=== PATIENT | female | born 2000 | race Caucasian/White ===

== ENCOUNTER 2024-09-27 12:18 | Oncology outpatient (recurring) (ONCR) | payer MEDICAID, SELFPAY ==
[2024-09-27] MEDS: rho(d) immune globulin 1,500 unit Syringe 1500 UNIT IM (13:44)
[2024-09-27 13:49] VITALS: BP 105/71; PULSE 97; RESP 16; TEMP 36.4; O2SAT 95
== END 2024-10-02 23:59 | disposition home or self-care (01) ==
PROVIDERS: PCP Nurse Practitioner; Visit Provider Family Medicine
DX: O26.899 Other specified pregnancy related conditions, unspecified trimester (principal)
CPT/HCPCS: 96372; J2790

== ENCOUNTER 2024-12-03 19:51 | Inpatient (IN) | payer MEDICAID, SELFPAY ==
[2024-12-03] VITALS (34 sets, daily range): BP systolic 90–133; BP diastolic 57–86; PULSE 79–119; RESP 16; O2SAT 96–99; BMI 31.8
[2024-12-03 18:45] LABS: Nitrazine Paper, PH Inconclusive
[2024-12-03 19:40] LABS: Hematocrit 31.7 % (36-47); Hemoglobin 10.70 g/dL (11.27-16.99); Mean Corpuscular HGB Conc 33.8 g/dL (30-55); Mean Corpuscular Hemoglobin 29.5 pg (27-33); Mean Corpuscular Volume 87.3 fl (85-98); Nucleated Red Blood Cells % 0 %; Platelet Count 265 10^3/cmm (157-399); Red Blood Count 3.63 10^6/uL (3.85-5.65); White Blood Count 12.52 10^3/uL (3.29-11.43)
[2024-12-03 19:50] LABS: PCP Screen Urine Negative (Negative)
[2024-12-03] MEDS: ROPivacaine syringe 100 MG/50 ML SYRINGE 10 MG EPIDURAL (23:11)
--- NOTE | 2024-12-03 23:12 | ANES.PREANE2 ---
Pre-Anesthetic Assessment Height/Weight: Height 1.6 m Weight 81.647 kg Pulse Resp BP Pulse Ox O2 Del Method 87 16 118/85 98 Room Air 12/03/24 23:07 12/03/24 19:09 12/03/24 23:07 12/03/24 23:07 12/03/24 19:51 Preop Diagnosis: intrauterine labor epidural Familial anesthetic complications: none Was Beta Yvrose taken within 24 hours: N/A Was Clonidine taken within 24 hours: N/A Last intake: currently eating ice chips and drinking water Social No alcohol and No tobacco Exam alert, oriented x 3 and clear to auscultation bilaterally Airway Mallampati: Class II Dentition: full History/ROS No significant history except as noted Pulmonary None reported CV/HEM None reported None reported Hepatic None reported GI None reported Metabolic None reported Musc/skel None reported Neuropsych None reported Anesthetic Plan ASA status: 2 Anesthesia: Anesthesia Evaluation and Regional (specify below) Risk of > 500 ml blood loss (7ml/kg in children): Yes, adequate IV access and fluids planned Medications/Allergies Home Medications ?Medication ?Instructions ?Recorded ?Confirmed ?Last Taken ?Type lamotrigine 100 mg tablet 100 mg PO 1XD 12/03/24 12/03/24 Unknown History ondansetron HCl 8 mg tablet 8 mg PO PRN 12/03/24 12/03/24 Unknown History [id number] 1 mg 1 tab PO 1XD 12/03/24 12/03/24 12/03/24 History tablet quetiapine 50 mg tablet 50 mg PO 1XD 12/03/24 12/03/24 Unknown History Allergies Allergy/AdvReac Type Severity Reaction Status Date / Time lavender (Lavandula Allergy ALGY-Hives Verified 12/03/24 20:16 angustifolia) sulfamethoxazole (From Allergy ALGY-Hives Verified 12/03/24 20:16 Bactrim) trimethoprim (From Bactrim) Allergy ALGY-Hives Verified 12/03/24 20:16 Current Medications Generic Name Dose Route Start Last Admin Trade Name Freq PRN Reason Stop Dose Admin Dextrose/Lactated Ringer's 1,000 mls @ 125 mls/hr 12/03/24 19:15 12/03/24 22:37 Dextrose 5%-Lactated Ringers IV 125 mls/hr .Q8H SAM Administration Ropivacaine 100 mg in 50 mls @ 10 mls/hr 12/03/24 21:00 12/03/24 23:11 Naropin Syringe EPIDURAL 10 mls/hr .Q5H SAM Administration Sodium Chloride 1,000 mls @ 999 mls/hr 12/03/24 20:54 12/03/24 22:38 Sodium Chloride 0.9% IV Infused .Q1H1M PRN Infusion See label comments PFSH Anesthesia Family History Denies family history of Colon cancer Ovarian cancer Diabetes Heart disease Breast cancer Hypertension Uterine cancer Thyroid disease Stroke Female Reproductive History : 2 Data Anesthesia 12/03/24 19:00 Short CBC 12/03/24 Range/Units 19:00 WBC 12.52 H (3.29-11.43) 10^3/uL Hgb 10.70 L (11.27-16.99) g/dL Hct 31.7 L (36-47) % MCV 87.3 (85-98) fl Plt Count 265 (157-399) 10^3/cmm Neut % (Auto) 61.8 % Neut # (Auto) 7.75 H (1.8-7.7) 10^3/uL Blood Bank 12/03/24 19:00 Blood Type O Negative Rho(D) Type Rh negative Antibody Screen Negative Anesthesia Procedures Epidural Time Out Performed: Yes Consents Signed: Procedure Consent Consent: requested by attending/covering physician, from patient, risks and benefits reviewed and patient agrees to proceed Lumbar Level: L4-L5 Epidural position: sitting Epidural procedure: sterile prep of area, 1% lidocaine to numb the area, 18 g needle, negative for paresthesia passed, neg for paresthesia, test dose given, 1.5% xylocaine 1:200k epi, 0.2% Ropivacaine bolus ml (5), placed PCEA, no systemic response, sterile dressing applied, L.U.D. no apparent complications and 0.2% Ropiavacaine @ mls/hr (10) Additional Comments: CATHERINE 6cm, catheter easily threaded to 5cm in the space. Vs monitored throughout and remained stable. Pt educated on [employer]
[2024-12-03] MEDS: ondansetron 2 mg/ML SDV 2 mL 4 MG IVP (23:38)
[2024-12-04] VITALS (29 sets, daily range): BP systolic 97–142; BP diastolic 52–79; PULSE 68–114; RESP 16; TEMP 36.5–36.7; O2SAT 97–99
[2024-12-04] MEDS: ROPivacaine syringe 100 MG/50 ML SYRINGE 10 MG EPIDURAL (02:31)
[2024-12-04] MEDS: oxytocin 30 UNIT/500 ML BAG 600 UNIT IV (03:09)
--- NOTE | 2024-12-04 03:17 | PM.OPHPUD ---
Labor & Delivery H&P Update Date of Procedure: December 04, 2024 Date H&P Performed: 11/30/24 Changes to previous documentation: The patient is a 24 year old at 40 weeks ega presenting with cervical change and consistent contractions. Admission Diagnosis: 24 year old in active labor Preop diagnosis: intrauterine Planned procedure: Spontaneous Vaginal Delivery Other information: The patient has had an unremarkable . She has had consistent care. There have been no concerns. Her blood type is O-, antibody screen neg. She passed glucose screen. Her drug screen was pos for marijuana. She was gbs neg. The remainder of her infectious disease profile was wnl. She has been on lamictal and seroquel during her due to Bipolar 2 disorder. Related Problem List Diagnoses 1. 40 weeks gestation of : 2. Bipolar 2 disorder: 3. Active labor at term: A&P Assessment and plan 1. 40 weeks gestation of : I anticipate routine labor and delivery Status: Acute 2. Bipolar 2 disorder: Status: Acute 3. Active labor at term: Status: Acute PDMP PDMP Reviewed: Not Reviewed
--- NOTE | 2024-12-04 03:31 | P.PCNOB_ITS ---
Delivery Note: Date of delivery: December 04, 2024 Pre-delivery diagnoses: 24 year old at 40 weeks in activ e labor Post-delivery diagnoses: Status post vaginal delivery Procedure: Delivering Physician: Gonzalo Vargas Estimated blood loss (mL): 50 Pre-Delivery Course: The patient presented to the hospital with active contractions and concerns that her water broke. Her membranes were found to be intact, but she was 5 cm dilated and eloy consistently. She received an epidural. AROM occurred. She then progressed to complete without difficulty. Delivery: The patient had an unremarkable vaginal delivery. After pushing through 1 contraction, she delivered a Male with a weight of 7 lbs 1 oz, APGARS 9,9 from a lei position without difficulty. There was no nuchal cord, there was no meconium. The cord was clamped and cut 2 minutes post delivery per the patient's request. The intact placenta with a 3 vessel cord were delivered shorlty thereafter. Inspection of the vaginal vault and perineum revealed a posterior midline superficial tear that was easily repaired with 3-0 vicryl using a running subcuticular stitch. Mom and baby were in stable condition. Post-Delivery Status: Good History History History 2 Term 2 Miscarriages/Ectopic Living Children 2 A&P Assessment and plan 1. Status post vaginal delivery: I anticipate routine care 2. Bipolar 2 disorder: We once again discussed her medications and the potential risks associated with them. During our discussion we talked about the small risks associated with both Lamictal and Seroquel. We decided to cut the dose in half for now to see how she responded with the understanding that we may need to adjust the dose later if either she or her baby demonstrated a need for a different dose based on response and sideeffects. 3. 40 weeks gestation of : PDMP PDMP Reviewed: Not Reviewed Coding Level of Care Code Acute Code for Chg Fwd Diagnoses Status post vaginal delivery Bipolar 2 disorder F31.81 40 weeks gestation of Z3A.40
[2024-12-04] MEDS: PRENATAL VIT NO.130/IRON/FOLIC 1 EACH TABLET PO (09:30)
[2024-12-04] MEDS: benzocaine-menthol 78 gm Canister 1 SPRAY TOPICAL (09:31)
--- NOTE | 2024-12-04 12:08 | PC.NURSE ---
DFS in room @this time.
[2024-12-04 16:06] LABS: Hematocrit 27.8 % (36-47); Hemoglobin 9.60 g/dL (11.27-16.99); Mean Corpuscular HGB Conc 34.5 g/dL (30-55); Mean Corpuscular Hemoglobin 30.2 pg (27-33); Mean Corpuscular Volume 87.4 fl (85-98); Platelet Count 235 10^3/cmm (157-399); Red Blood Count 3.18 10^6/uL (3.85-5.65); White Blood Count 13.76 10^3/uL (3.29-11.43)
[2024-12-05 04:25] VITALS: BP 112/72; PULSE 77; RESP 16; TEMP 36.6; O2SAT 98
--- NOTE | 2024-12-05 07:33 | P.DS_ITS ---
Discharge Providers MEDICAL AND HEALTH SERVICES MANAGER Date of Admission: 12/03/24 19:51 Date of Discharge: 12/05/24 Attending Provider at Admission: Gonzalo Vargas MD Attending Provider at Discharge: Gonzalo Vargas MD Primary Care Provider: JOSE Scott Diagnoses at Discharge Discharge Diagnosis 1. Status post vaginal delivery: 2. Bipolar 2 disorder: 3. 40 weeks gestation of : Reason for Visit Reason for Visit: Poss ROM Hospital Course Hospital Course The patient arrived at the hospital in active labor. She progressed to complete and had an unremarkable vaginal delivery of a healthy appearing term infant. Her course was unremarkable. She has breastfed well. Her bleeding is wnl. Her pain has been well controlled. There have been no concerns. Information Peripartum Data: Delivery Method: Vaginal Physical Exam Narrative: rrr, ctab Fundus is firm and below the umbilicus. Extremities with trace edema. Urinary Catheter Management: Teran: Cath Placed During This Visit: yes, but has since been removed by the nurse Reason for Continuing Indwelling Catheter: Decision to DC Catheter Urinary Catheter Date of Insertion: 12/03/24 Urinary Catheter Time of Insertion: 23:45 Date Urinary Catheter Removed: 12/04/24 Time Urinary Catheter Discontinued: 02:59 History History History 2 Term 2 Miscarriages/Ectopic Living Children 2 Discharge Data Studies Completed and Pending Laboratory Results WBC 13.76 10^3/uL (3.29-11.43) H 12/04/24 15:57 RBC 3.18 10^6/uL (3.85-5.65) L 12/04/24 15:57 Hgb 9.60 g/dL (11.27-16.99) L 12/04/24 15:57 Hct 27.8 % (36-47) L 12/04/24 15:57 MCV 87.4 fl (85-98) 12/04/24 15:57 MCH 30.2 pg (27-33) 12/04/24 15:57 MCHC 34.5 g/dL (30-55) 12/04/24 15:57 RDW 13.6 % (12.1-15.1) 12/04/24 15:57 Plt Count 235 10^3/cmm (157-399) 12/04/24 15:57 MPV 10.5 fL (7.4-10.4) H 12/04/24 15:57 Neut % (Auto) 61.8 % 12/03/24 19:00 Lymph % (Auto) 31.4 % 12/03/24 19:00 [place] % (Auto) 5.5 % 12/03/24 19:00 Eos % (Auto) 0.5 % 12/03/24 19:00 Baso % (Auto) 0.2 % 12/03/24 19:00 Neut # (Auto) 7.75 10^3/uL (1.8-7.7) H 12/03/24 19:00 Lymph # (Auto) 3.9 10^3/uL (0.8-4.8) 12/03/24 19:00 [place] # (Auto) 0.7 10^3/uL (0.2-0.9) 12/03/24 19:00 Eos # (Auto) 0.1 10^3/uL (0.0-0.8) 12/03/24 19:00 Baso # (Auto) 0.0 10^3/uL (0.0-0.1) 12/03/24 19:00 Nucleated RBC % (auto) 0 % 12/03/24 19:00 Nucleated RBCs # 0.0 /100WBC 12/03/24 19:00 Fluid pH (paper) Inconclusive 12/03/24 18:35 Urine Opiates Screen Negative ng/mL (Negative) 12/03/24 19:00 Ur Barbiturates Screen Negative ng/mL (Negative) 12/03/24 19:00 Ur Phencyclidine Scrn Negative ng/mL (Negative) 12/03/24 19:00 Ur Amphetamines Screen Negative ng/mL (Negative) 12/03/24 19:00 U Benzodiazepines Scrn Negative ng/mL (Negative) 12/03/24 19:00 Urine Cocaine Screen Negative ng/mL (Negative) 12/03/24 19:00 U Marijuana (THC) Screen Positive ng/mL (Negative) H 12/03/24 19:00 Blood Type O Negative 12/03/24 19:00 Rho(D) Type Rh negative 12/03/24 19:00 Antibody Screen Negative 12/03/24 19:00 Vitals Last Vital Signs Temp 97.9 F 12/05/24 04:25 Pulse 77 12/05/24 04:25 Resp 16 12/05/24 04:25 BP 112/72 12/05/24 04:25 Pulse Ox 98 12/05/24 04:25 O2 Del Method Room Air 12/05/24 04:25 Results Labs OB ([facility]): Blood Type O Negative 12/03/24 Antibody Screen Negative 12/03/24 Hct, (36-47) 27.8 % L 12/04/24 Hgb, (11.27-16.99) 9.60 g/dL L 12/04/24 Rho(D) Type Rh negative 12/03/24 Plt Count, (157-399) 235 10^3/cmm 12/04/24 Urine Opiates Screen, (Negative) Negative ng/mL 5 Ur Barbiturates Screen, (Negative) Negative ng/mL 12/03 Ur Phencyclidine Scrn, (Negative) Negative ng/mL Ur Amphetamines Screen, (Negative) Negative ng/mL 12/03 U Benzodiazepines Scrn, (Negative) Negative ng/mL 12/03 Urine Cocaine Screen, (Negative) Negative ng/mL 5 U Marijuana (THC) Screen, (Negative) Positive ng/mL H Discharge Plan Discharge Patient Disposition: Home Condition: Stable Prescriptions: New quetiapine 25 mg Tablet 25 mg PO BID Qty: 60 3RF lamotrigine 25 mg Tablet 50 mg PO DAILY Qty: 60 0RF ibuprofen 800 mg Tablet 800 mg PO TID Qty: 45 0RF docusate sodium 100 mg Capsule 100 mg PO BID Qty: 20 0RF Continued [id number] 1 mg Tablet 1 tab PO 1XD Discontinued ondansetron HCl [Zofran] 8 mg Tablet 8 mg PO PRN lamotrigine 100 mg Tablet 100 mg PO 1XD quetiapine 50 mg Tablet 50 mg PO 1XD Discharge Order = DC NOW: Discharge Order (Routine); Ordered 12/05/24 Ordered By: Gonzalo Vargas Referrals: Gonzalo Vargas MD [Physician, Family Practice] Discharge Diet: Usual diet Discharge Activity: Limit activity as instructed Patient Instructions: Depression (DC), Opioid Safety (DC), Preeclampsia and Eclampsia After Delivery (GEN), Hemorrhage (DC), OB Discharge Report, OB Food/Drug Interaction Guide, OB Care at Home, Opioid Safety, OB Vaginal Deliveries, Patient Portal & Jesús Instructions, Abnormal Bleeding Discharge Attestations MEDICAL AND HEALTH SERVICES MANAGER Time Spent in Discharge Care*: greater than 30 min Coding Level of Care Code Acute Code for Chg Fwd Diagnoses Status post vaginal delivery Bipolar 2 disorder F31.81 40 weeks gestation of Z3A.40
--- NOTE | 2024-12-05 08:00 | ANE.PACU2 ---
Inpatient post-anesthesia follow up: Airway intact: Yes Vital signs: Temperature 97.6 F Pulse Rate 88 Respiratory Rate 16 Blood Pressure 107/75 Pulse Oximetry 97 Oxygen Delivery Me thod Room Air Oxygen Flow Rate Fraction of Inspir ed Oxygen Hydration adequate: Yes Nausea and vomiting: No Pain level: 1 Mental status: Baseline Epidural Start/End: Epidural Start Date: 12/03/24 Epidural Start Time: 22:40 Epidural End Date: 12/04/24 Epidural End Time: 05:30
[2024-12-05 09:00] VITALS: BP 107/75; PULSE 88; RESP 16; TEMP 36.4; O2SAT 97
== END 2024-12-05 09:25 | disposition home or self-care (01) | DRG 806 ==
LOC: OPOB 19:51 → OBGYN 19:51
PROVIDERS: Admitting Provider Family Medicine; PCP Nurse Practitioner; Visit Provider Family Medicine
DX: O48.0 Post-term pregnancy (principal); F31.81 Bipolar II disorder; Z37.0 Single live birth; Z3A.40 40 weeks gestation of pregnancy; O99.344 Other mental disorders complicating childbirth; O70.9 Perineal laceration during delivery, unspecified
CPT/HCPCS: 36415; 51702; 59025; 59409; 80306; 83986; 85025; 85027; 86850; 86900; 96374; 99211; J2405; J2590; J2795; J7030; J7121; J9999